=== PATIENT | female | born 1965 | race Caucasian/White ===

== ENCOUNTER 2017-10-19 11:31 | Inpatient (IN) | payer BC ==
[2017-10-19] MEDS ORDERED: CIPROFLOXACIN 400mg IV 400 MG/200 ML BAG IV ONE (12:11)
[2017-10-19] MEDS ORDERED: FENTANYL CITR 100 MCG/2 ML ONE ×2 (12:11→13:35)
[2017-10-19] MEDS ORDERED: FAMOTIDINE 20 MG/2 ML VIAL IV ONE (12:11)
[2017-10-19] MEDS ORDERED: NA CHLORIDE 0.9% 1,000 ML ONE ×2 (12:11→13:43)
[2017-10-19] MEDS ORDERED: METRONIDAZOLE 500mg IVPB 500 MG/100 ML BAG IV ONE (12:11)
[2017-10-19] MEDS ORDERED: ONDANSETRON 4 MG/2 ML VIAL ONE (12:11)
[2017-10-19 12:59] LABS: Absolute Lymphocytes (CBC) 1.5 K/uL (0.7-4.9); Absolute Monocytes 0.5 K/uL (0.1-1.3); Absolute Neutrophil 5.7 K/uL (1.8-8.0); Basophils % 0.8 % (0-1.3); Eosinophils % 1.1 % (0-4.4); Hematocrit 43.6 % (36.0-45.0); Lymphocytes % 18.6 % (15.3-44.8); MCH 27.8 pg (27.0-35.0); MCV 85.5 fL (80-100); MPV 7.7 fL (7.6-11.3); Monocytes % 6.8 % (3.3-12.3)
[2017-10-19 13:09] LABS: Protime INR 0.93
[2017-10-19 13:12] LABS: Potassium 3.6 mEq/L (3.6-5.0)
[2017-10-19 13:19] LABS: Albumin 3.5 g/dL (3.2-5.5); Bilirubin Direct 0.1 mg/dL (0-0.2); Bilirubin Total 0.7 mg/dL (0.3-1.2); Magnesium 1.8 mg/dL (1.8-2.5); Protein, Total 7.3 g/dL (6.0-8.3)
--- NOTE | 2017-10-19 13:38 | RAD REPORT ---
EXAM DESCRIPTION: RAD - Abdomen Acute Series - 10/19/2017 1:17 pm CLINICAL HISTORY: Flank pain, hematuria COMPARISON: 10/16/2017, 10/15/2017. FINDINGS: Frontal view the chest demonstrates a grossly clear lungs. No subdiaphragmatic free air se en. Cardiac size is normal. Renal shadows are largely obscured by stool content. No bowel obstruction is seen. IMPRESSION: No acute finding identified. Renal shadows are largely obscured by stool in the colon.
[2017-10-19 14:08] LABS: Urine Blood 3+ (NEG); Urine Glucose NEGATIVE (NEG); Urine Protein NEGATIVE (NEG); Urine Specific Gravity 1.025 (1.005-1.030); Urine pH 5.5 (5.0-7.0)
[2017-10-19 14:13] LABS: CKMB Creatine Kinase MB 1.8 ng/ml (0.3-4.0)
--- NOTE | 2017-10-19 15:24 | ER ---
Nurse's Notes [facility] Name: Karen King Age: 52 yrs Sex: Female : 1965 Arrival Date: 10/19/2017 Time: 11:32 Bed 17 Private MD: Diagnosis: Crohn's disease [regional enteritis];Abdominal tenderness;Hematuria;Hydronephrosis with ureteral stricture, not elsewhere classified-6 mm left lower pole calculi Presentation: 10/19 11:37 Presenting complaint: Patient states: I had a 7mm stone on left side on and I la1 am having worsening pain and urinating blood. Transition of care: patient was not received from another setting of care. Onset of symptoms was October 19, 2017. Initial Sepsis Screen: Does the patient meet any 2 criteria? No. Patient's initial sepsis screen is negative. Does the patient have a suspected source of infection? No. Patient's initial sepsis screen is negative. Care prior to arrival: None. 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 - Social history:: Smoking status: unknown. Screenin:40 Abuse screen: Denies threats or abuse. Nutritional screening: No deficits noted. rb1 Tuberculosis screening: No symptoms or risk factors identified. Fall Risk None identified. Assessment: 11:40 General: Appears uncomfortable, Behavior is crying, Denies fever. Pain: Complains of rb1 pain in left flank Pain currently is 10 out of 10 on a pain scale. Neuro: Level of Consciousness is awake, alert, obeys commands, Oriented to person, place, time, situation. Cardiovascular: Capillary refill < 3 seconds is brisk in bilateral fingers. Respiratory: Airway is patent Respiratory effort is even, unlabored, Respiratory pattern is regular, symmetrical. GI: Reports nausea, vomiting. : Reports bloody urine. Derm: Skin is pink, warm \T\ dry. 12:32 Reassessment: Patient appears in no apparent distress at this time. Patient and/or rb1 family updated on plan of care and expected duration. Pain level reassessed. Patient is alert, oriented x 3, equal unlabored respirations, skin warm/dry/pink. Notified provider that we are having difficulty inserting an IV line and that the Pt. may need a midline or EJ. 12:54 Reassessment: Called x-ray to inform them that the pt. has received pain medication and rb1 is ready for tests. 13:40 Reassessment: Patient appears in no apparent distress at this time. Patient and/or rb1 family updated on plan of care and expected duration. Pain level reassessed. Patient is alert, oriented x 3, equal unlabored respirations, skin warm/dry/pink. 14:30 Reassessment: Patient appears in no apparent distress at this time. No changes from rb1 previously documented assessment. 15:55 Reassessment: Patient and/or family updated on plan of care and expected duration. Pain rb1 level reassessed. Patient is alert, oriented x 3, equal unlabored respirations, skin warm/dry/pink. Notified provider of pain; received order for Fentanyl 50 mcg IVP once. 17:00 Reassessment: Patient appears in no apparent distress at this time. Patient and/or rb1 family updated on plan of care and expected duration. Pain level reassessed. Patient is alert, oriented x 3, equal unlabored respirations, skin warm/dry/pink. pain 7/10. 17:20 Reassessment: Called to give report to NETO Haney, was on hold for seven minutes. rb1 Spoke to NETO Haney/ NETO Teresa at 1728. Gave information from the SBAR. All questions asked and answered. Vital Signs: 11:38 BP 165 / 79; Pulse 94; Resp 19; Temp 98.8(TE); Pulse Ox 96% on R/A; Weight 89.81 kg; la1 Height 5 ft. 2 in. (157.48 cm); 12:30 BP 142 / 81; Pulse 79; Resp 18; Pulse Ox 99% on R/A; rb1 15:30 BP 117 / 101; Pulse 71; Resp 17; Pulse Ox 97% on R/A; rb1 16:30 BP 126 / 110; Pulse 70; Resp 18; Pulse Ox 97% on R/A; rb1 17:25 BP 127 / 83; Pulse 67; Resp 16; Pulse Ox 96% on R/A; rb1 11:38 Body Mass Index 36.21 (89.81 kg, 157.48 cm) la1 ED Course: 11:32 Patient arrived in ED. as 11:36 Gerard Gary, RN is Primary Nurse. la1 11:38 Triage completed. la1 11:38 Arm band placed on left wrist. la1 11:39 Nitish Vazquez MD is Attending Physician. tomy 11:40 Patient has correct armband on for positive identification. Bed in low position. Call rb1 light in reach. Side rails up X 1. explosive ordnance disposal manager on. Pulse ox on. NIBP on. 12:15 Missed attempt(s): 20 gauge in right antecubital area. Bleeding controlled, band aid dh3 applied, catheter tip intact. 12:20 Missed attempt(s): 22 gauge in left antecubital area. rb1 12:31 Urine collected: clean catch specimen, cloudy, gokul colored. jb1 12:52 EKG done, by ED staff, reviewed by Nitish Vazquez MD. jb1 13:15 Abdomen Acute Series XRAY In Process Unspecified. EDMS 15:23 Claudia Johnson MD is Hospitalizing Provider. tomy 15:58 Hospitalizing Provider role handed off by Claudia Johnson MD eb 15:58 Sam Sánchez MD is Hospitalizing Provider. eb 16:00 Note: CT delay due to pt needs pain meds. Rn will call when pt is ready for ct. cw1 16:20 CT completed. Patient moved to CT via wheelchair. Patient moved back from CT. cw1 17:56 No provider procedures requiring assistance completed. Patient admitted, IV remains in rb1 place. Administered Medications: 12:50 Drug: NS 0.9% 1000 ml Route: IV; Rate: 1 bolus; Site: left upper arm; rb1 13:50 Follow up: IV Status: Completed infusion rb1 12:50 Drug: fentaNYL (PF) 50 mcg Route: IVP; Site: left upper arm; rb1 13:10 Follow up: Response: No adverse reaction; Pain is unchanged, physician notified; no rb1 order received at this time 12:50 Drug: Zofran 4 mg Route: IVP; Site: left upper arm; rb1 13:10 Follow up: Response: No adverse reaction; Nausea is decreased rb1 12:50 Drug: Pepcid 20 mg Route: IVP; Site: left upper arm; rb1 13:10 Follow up: Response: No adverse reaction rb1 12:59 Drug: Flagyl 500 mg Volume: 100 ml; Route: IVPB; Rate: 200 ml/hr; Infused Over: 30 rb1 mins; Site: left upper arm; 13:40 Drug: fentaNYL (PF) 25 mcg Route: IVP; Site: left upper arm; rb1 14:00 Follow up: Response: No adverse reaction; Pain is decreased rb1 13:50 Drug: NS 0.9% 1000 ml Route: IV; Rate: 125 ml/hr; Site: left upper arm; rb1 14:02 Drug: Cipro 400 mg Volume: 200 ml; Route: IVPB; Infused Over: 60 mins; Site: left ph antecubital; 16:00 Drug: fentaNYL (PF) 50 mcg Route: IVP; Site: left upper arm; rb1 Intake: Outcome: 15:24 Decision to Hospitalize by Provider. tomy 17:56 Admitted to Tele accompanied by tech, family with patient, via stretcher, room 410, rb1 with chart, Report called to NETO Haney/NETO Teresa 17:56 Condition: stable 17:56 Instructed on the need for admit. 17:58 Patient left the ED. rb1 Signatures: Dispatcher [employer] EDCristian Moura jbNitish Terrazas MD MD cha Martinez, Amelia as Woodley, Crystal cw1 Gerard Gary RN RN la1 Shauna Kent RN RN Delmy Benitez, NETO RN rb1 Marely Brown 3 Katey Tesfaye
--- NOTE | 2017-10-19 15:25 | EDPHYS ---
Physician Documentation [facility] Name: Karen King Age: 52 yrs Sex: Female : 1965 Arrival Date: 10/19/2017 Time: 11:32 Bed 17 Private MD: ED Physician Nitish Vazquez HPI: 10/19 12:01 This 52 yrs old Female presents to ER via Wheelchair with complaints of Flank tomy Pain. 12:01 The patient complains of pain in the left low back, left mid back, right mid back and tomy right low back. 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 - Social history:: Smoking status: unknown. ROS: 12:01 Constitutional: Negative for fever, chills, and weight loss, Eyes: Negative for injury, tomy pain, redness, and discharge, ENT: Negative for injury, pain, and discharge, Neck: Negative for injury, pain, and swelling, Cardiovascular: Negative for chest pain, palpitations, and edema, Respiratory: Negative for shortness of breath, cough, wheezing, and pleuritic chest pain, Back: Negative for injury and pain, : Negative for injury, bleeding, discharge, and swelling, MS/Extremity: Negative for injury and deformity, Skin: Negative for injury, rash, and discoloration, Neuro: Negative for headache, weakness, numbness, tingling, and seizure, Psych: Negative for depression, anxiety, suicide ideation, homicidal ideation, and hallucinations, Allergy/Immunology: Negative for hives, rash, and allergies, Endocrine: Negative for neck swelling, polydipsia, polyuria, polyphagia, and marked weight changes, Hematologic/Lymphatic: Negative for swollen nodes, abnormal bleeding, and unusual bruising. 12:01 Abdomen/GI: Positive for abdominal pain, nausea and vomiting, nausea, vomiting, and diarrhea, nausea, vomiting, diarrhea, abdominal cramps. Exam: 12:01 Constitutional: This is a well developed, well nourished patient who is awake, alert, tomy and in no acute distress. Head/Face: Normocephalic, atraumatic. Eyes: Pupils equal round and reactive to light, extra-ocular motions intact. Lids and lashes normal. Conjunctiva and sclera are non-icteric and not injected. Cornea within normal limits. Periorbital areas with no swelling, redness, or edema. ENT: Nares patent. No nasal discharge, no septal abnormalities noted. Tympanic membranes are normal and external auditory canals are clear. Oropharynx with no redness, swelling, or masses, exudates, or evidence of obstruction, uvula midline. Mucous membranes moist. Neck: Trachea midline, no thyromegaly or masses palpated, and no cervical lymphadenopathy. Supple, full range of motion without nuchal rigidity, or vertebral point tenderness. No Meningismus. Chest/axilla: Normal chest wall appearance and motion. Nontender with no deformity. No lesions are appreciated. Cardiovascular: Regular rate and rhythm with a normal S1 and S2. No gallops, murmurs, or rubs. Normal PMI, no JVD. No pulse deficits. Respiratory: Lungs have equal breath sounds bilaterally, clear to auscultation and percussion. No rales, rhonchi or wheezes noted. No increased work of breathing, no retractions or nasal flaring. Abdomen/GI: Soft, non-tender, with normal bowel sounds. No distension or tympany. No guarding or rebound. No evidence of tenderness throughout. 12:01 Back: Exam negative for Vital Signs: 11:38 BP 165 / 79; Pulse 94; Resp 19; Temp 98.8(TE); Pulse Ox 96% on R/A; Weight 89.81 kg; la1 Height 5 ft. 2 in. (157.48 cm); 12:30 BP 142 / 81; Pulse 79; Resp 18; Pulse Ox 99% on R/A; rb1 15:30 BP 117 / 101; Pulse 71; Resp 17; Pulse Ox 97% on R/A; rb1 16:30 BP 126 / 110; Pulse 70; Resp 18; Pulse Ox 97% on R/A; rb1 17:25 BP 127 / 83; Pulse 67; Resp 16; Pulse Ox 96% on R/A; rb1 11:38 Body Mass Index 36.21 (89.81 kg, 157.48 cm) la1 MDM: 11:[address] [facility] 12:03 Data reviewed: vital signs, nurses notes, EMS record. [facility] 10/19 12:00 Order name: Basic Metabolic Panel [facility] 10/19 12:00 Order name: BNP; Complete Time: 14:00 [facility] 10/19 12:00 Order name: CBC with Diff; Complete Time: 14:00 [facility] 10/19 12:00 Order name: Ckmb [facility] 10/19 12:00 Order name: CPK [facility] 10/19 12:00 Order name: LFT's; Complete Time: 14:57 [facility] 10/19 12:00 Order name: Magnesium; Complete Time: 14:57 [facility] 10/19 12:00 Order name: PT-INR; Complete Time: 14:00 [facility] 10/19 12:00 Order name: Ptt, Activated; Complete Time: 14:00 [facility] 10/19 12:00 Order name: Troponin (emerg Dept Use Only); Complete Time: 14:00 [facility] 10/19 12:00 Order name: Lipase; Complete Time: 14:57 [facility] 10/19 12:01 Order name: Basic Metabolic Panel; Complete Time: 14:57 [facility] 10/19 12:01 Order name: CKMB Creatine Kinase MB; Complete Time: 14:57 [facility] 10/19 12:01 Order name: Creatine Phosphokinase; Complete Time: 14:57 [facility] 10/19 12:00 Order name: EKG; Complete Time: 12:01 [facility] 10/19 12:00 Order name: Abdomen Acute Series XRAY; Complete Time: 14:00 [facility] 10/19 12:36 Order name: Urine Dipstick--Ancillary (enter results); Complete Time: 14:57 10/19 12:36 Order name: Urine --Ancillary (enter results); Complete Time: 14:57 10/19 15:27 Order name: CONS Physician Consult [facility] 10/19 15:47 Order name: CT Stone Protocol [facility] 10/19 16:44 Order name: CT [facility] 10/19 12:00 Order name: Cardiac monitoring; Complete Time: 12:31 [facility] 10/19 12:00 Order name: EKG - Nurse/Tech; Complete Time: 12: [facility] 10/19 12:00 Order name: IV Saline Lock; Complete Time: 12: [facility] 10/19 12:00 Order name: Labs collected and sent; Complete Time: 12:53 [facility] 10/19 12:00 Order name: O2 Per Protocol; Complete Time: 12: [facility] 10/19 12:00 Order name: O2 Sat Monitoring; Complete Time: : [facility] 10/19 12:00 Order name: Urine Dipstick-Ancillary (obtain specimen); Complete Time: 12: [facility] Administered Medications: 12:50 Drug: NS 0.9% 1000 ml Route: IV; Rate: 1 bolus; Site: left upper arm; rb1 13:50 Follow up: IV Status: Completed infusion rb1 12:50 Drug: fentaNYL (PF) 50 mcg Route: IVP; Site: left upper arm; rb1 13:10 Follow up: Response: No adverse reaction; Pain is unchanged, physician notified; no rb1 order received at this time 12:50 Drug: Zofran 4 mg Route: IVP; Site: left upper arm; rb1 13:10 Follow up: Response: No adverse reaction; Nausea is decreased rb1 12:50 Drug: Pepcid 20 mg Route: IVP; Site: left upper arm; rb1 13:10 Follow up: Response: No adverse reaction rb1 12:59 Drug: Flagyl 500 mg Volume: 100 ml; Route: IVPB; Rate: 200 ml/hr; Infused Over: 30 rb1 mins; Site: left upper arm; 13:40 Drug: fentaNYL (PF) 25 mcg Route: IVP; Site: left upper arm; rb1 14:00 Follow up: Response: No adverse reaction; Pain is decreased rb1 13:50 Drug: NS 0.9% 1000 ml Route: IV; Rate: 125 ml/hr; Site: left upper arm; rb1 14:02 Drug: Cipro 400 mg Volume: 200 ml; Route: IVPB; Infused Over: 60 mins; Site: left ph antecubital; 16:00 Drug: fentaNYL (PF) 50 mcg Route: IVP; Site: left upper arm; rb1 Disposition: 10/19/17 15:24 Hospitalization ordered by Sam Sánchez for Inpatient Admission. Preliminary diagnosis are Crohn's disease [regional enteritis], Abdominal tenderness, Hematuria, Hydronephrosis with ureteral stricture, not elsewhere classified - 6 mm left lower pole calculi. - Bed requested for Telemetry/MedSurg (Inpatient). - Status is Inpatient Admission. rb1 - Condition is Fair. - Problem is new. - Symptoms have improved. UTI on Admission? No Signatures: Dispatcher [employer] EDMS Nitish Vazquez MD MD cha Attema, Lee RN RN la1 Shauna Kent RN RN Delmy Benitez RN RN rb1 Katey Tesfaye
[2017-10-19] MEDS ORDERED: ACETAMINOPHEN 500 MG TAB PO PRN (15:54)
[2017-10-19] MEDS ORDERED: FENTANYL CITR 100 MCG/2 ML IV PRN (15:57)
[2017-10-19] MEDS: NA CHLORIDE 0.9% 1,000 ML IV SCH ×2 (16:00→23:39)
--- NOTE | 2017-10-19 16:43 | RAD REPORT ---
EXAM DESCRIPTION: CT - Stone Protocol - 10/19/2017 4:21 pm CLINICAL HISTORY: Flank pain. Hematuria COMPARISON: 10/15/2017 TECHNIQUE: Axial images were obtained without oral or IV contrast. Lack of contrast limits solid org an and vascular assessment. The [id number] spans the entirety of the system partially obscuring uppermost abdomen and lung bases. Coronal reformatted images were obtained and reviewed. All CT scans are performed using dose optimization technique as appropriate and may include automated exposure control or mA/KV adjustment according to patient size. FINDINGS: The lower lung jenkins are clear. Imaged portions of the liver and spleen show no suspicious findings on non-contrast imaging. The panc reas and adrenal glands are normal. No pathologic lymphadenopathy in the abdomen or pelvis. The previously noted calculus in the inferior left kidney appears to have migrated into the left abe l pelvis, measuring 5 mm (640 HU). Mild left hydronephrosis is present. Additional punctate bilateral nephrolithiasis on the left seen. A tiny punctate stone is also suspected at the right UPJ measuring 1 mm with mild to moderate right h ydronephrosis, fractionally progressive since the comparative study. No bowel obstruction, free air, free fluid or abscess. Normal appendix noted.Mucosal and mural thicke sebas of the ileum and dilatation of the right lower quadrant ileal loop noted to 4 cm, favoring ileit is. This finding appears mildly progressive since the comparative study. No significant bony abnormality. IMPRESSION: Previously noted inferior left renal calculus has migrated to the left renal pelvis. Mil d left hydronephrosis is noted. Punctate 1 mm calculus suspected right UPJ with mild to moderate right hydronephrosis. Mild progression in ileitis since comparative exam.
[2017-10-19] MEDS ORDERED: METHYLPREDNISOLONE 40 MG INJ IV ONE (18:20)
[2017-10-19] MEDS: METRONIDAZOLE 500mg IVPB 500 MG/100 ML BAG IV SCH ×2 (18:32→23:38)
[2017-10-19] MEDS: HYDROMORPHONE HCL 2 MG/ML inj IV PRN ×2 (18:32→22:39)
[2017-10-19] MEDS: ONDANSETRON 4 MG/2 ML VIAL IV PRN ×2 (18:32→23:38)
[2017-10-19 18:45] VITALS: BMI 36.8
[2017-10-19] MEDS: CIPROFLOXACIN 400mg IV 400 MG/200 ML BAG IV SCH (22:37)
[2017-10-19] MEDS: FAMOTIDINE 20 MG/2 ML VIAL IV SCH (22:38)
[2017-10-20] MEDS: HYDROMORPHONE HCL 2 MG/ML inj IV PRN ×5 (02:48→22:01)
[2017-10-20 05:08] LABS: Potassium 4.4 mEq/L (3.6-5.0)
[2017-10-20] MEDS: METRONIDAZOLE 500mg IVPB 500 MG/100 ML BAG IV SCH ×3 (05:22→17:01)
--- NOTE | 2017-10-20 07:05 | EKG ---
Test Date: 2017-10-19 Test Time: 12:45:51 Pattern Lease Inspector: HERB MEASUREMENT RESULTS: Intervals: Rate: 79 MA: 130 QRSD: 82 QT: 386 QTc: 442 [place]: P: 76 MA: 130 QRS: 67 T: 57 INTERPRETIVE STATEMENTS: Normal sinus rhythm Normal ECG Compared to ECG 04/21/2017 18:51:04 Sinus tachycardia no longer present Ventricular premature complex(es) no longer present Electronically Signed On 10-20-17 07:04:48 CDT by Alexander Grant
[2017-10-20] MEDS: NA CHLORIDE 0.9% 1,000 ML IV SCH ×2 (08:00→16:31)
[2017-10-20] MEDS: CIPROFLOXACIN 400mg IV 400 MG/200 ML BAG IV SCH ×2 (08:58→21:33)
[2017-10-20] MEDS: FAMOTIDINE 20 MG/2 ML VIAL IV SCH ×2 (08:58→21:33)
[2017-10-20] MEDS: PROMETHAZINE 25 MG/ML VIAL IV PRN ×2 (09:01→19:38)
[2017-10-20] MEDS ORDERED: HYDROMORPHONE HCL 2 MG/ML inj IV ONE (14:42)
[2017-10-21] MEDS: NA CHLORIDE 0.9% 1,000 ML IV SCH ×3 (01:29→16:00)
[2017-10-21] MEDS: METRONIDAZOLE 500mg IVPB 500 MG/100 ML BAG IV SCH ×4 (01:29→17:22)
[2017-10-21] MEDS: HYDROMORPHONE HCL 2 MG/ML inj IV PRN ×3 (02:58→12:03)
--- NOTE | 2017-10-21 04:16 | HP ---
Date of Admission: 10/19/2017 Chief Complaint: Right flank pain. History Of Present Illness: A 52-year-old female, who is known to have multiple kidney stones, who i s under urologist for workup of recurrent stones, was brought to the emergency room because of right flank pain radiating to right groin and right thigh. The patient had evaluation done. The patient h ad normal white count. CT scan showed evidence of right proximal ureter stone. The patient is admit mckinley. Past Medical History: Positive for Crohn's disease, on treatment; recurrent kidney stones, history o f anxiety and depression, history of allergies and asthma. Family History: Noncontributory. Personal History: Nonsmoker. Home Medicines: Please refer to the chart. Allergies: INCLUDE BUTALBITAL, MORPHINE, NONSTEROIDALS. PLEASE REFER TO THE CHART. Review of Systems: The patient denied any chest pain or shortness of breath. Physical Examination: General: Revealed 52-year-old female, in moderate pain. Vital Signs: Afebrile. HEENT: Negative. Neck: Supple. JVD negative. Chest: Clear. Heart: Regular. Abdomen: Soft and nontender. Extremities: No edema. Laboratory Data: White count normal. CT scan, evidence of right proximal ureteral stone with obstru ction. Assessment: 1.Symptomatic right ureteral stone. 2.Crohn's disease. 3.History of asthma and allergies. 4.Multiple allergies. Plan: IV fluids. Urology consultation. CAROLINA/TONYA Voice ID: [id number]
--- NOTE | 2017-10-21 07:32 | RAD REPORT ---
EXAM DESCRIPTION: RAD - Abdomen 1 View (KUB) - 10/21/2017 7:08 am CLINICAL HISTORY: Renal calculi COMPARISON: CT study October 19, KUB October 16 FINDINGS: The left UPJ region calculus seen on the prior CT study is not clearly seen on this examin ation. It is uncertain if the patient underwent intervening lithotripsy. Overlying bowel content is l imiting. No stone or stone fragment seen along the expected course of the left ureter. Pelvic floor p hleboliths are again noted. No obstruction, free air or pneumatosis. Bowel gas pattern is nonspecific. No significant bony findings IMPRESSION: The left UPJ region calcifications seen on the earlier CT study is not clearly evident o n this study. Overlying bowel content is limiting. No stone or stone fragment along the expected course of the ureter. No bladder calculus suspected. The stone may have fragmented and passed. The stone or stone fragments may now be occult on plain sb ging due to small size, composition or overlying bowel blocking visualization. If the patient has continued symptoms or there is need for more definitive stone or fragment assessme nt, repeat CT stone protocol could be performed.
--- NOTE | 2017-10-21 08:43 | CON ---
History Of Present Illness: A 52-year-old female brought to the emergency room for flex lower back flank pain and right back flank pain. She had a CT scan showing a 1 mm stone in the right UPJ and a 6 mm stone in the left UPJ. The dilated renal pelvis was present on previous scan show so that may be possible extrarenal pelvises. She has a history of Crohn's, she has seen Dr. Garvin for kidney stones and stent placement. She said last time Dr. Garvin left the stent on the left side for 4 months due to insurance issues. She had 7-8 stones in the past and has been to [place] and other places like that. Allergies: _hydromorphone_, MORPHINE, NSAIDS, ROCEPHIN, TRAMADOL, ZYRTEC. Home Medications: Synthroid. Past Medical History: Asthma, Hypothyroid, Crohn's, kidney stone. Past Surgical History: Hysterectomy, back hip surgery, previous kidney stone surgeries. Review of Systems: Constitutional: Negative for fever, chills. Eyes: Negative for injury. ENT: Negative for injury, pain or discharge. Neck: Negative for swelling. Cardiovascular: Negative for chest pain or palpitation. Respiratory: Negative for shortness of breath or cough. Back: Positive for back pain as mentioned above. : As mentioned above. Positive for kidney stones. Musculoskeletal: Negative for injury or deformity. Skin: Positive for multiple tattoos all over. Psych: Negative for depression or anxiety or suicide. Allergies: Negative for rashes or hives. Endocrine: Negative for neck swelling. Physical Examination: Vital Signs: Temperature 97.2, pulse 67, respirations 16, BP 133/93, sats 93%. HEENT: Atraumatic, normocephalic. Musculoskeletal: Positive bilateral flank tenderness. Abdomen: Soft, nontender. Extremities: Normal range of motion. Laboratory Data: White count normal at 7.9, H and H 14 and 43, platelet count 371, _ negative. Chemistry: Sodium 138, potassium 4.4, chloride 107, carbon dioxide 29, BUN 11, creatinine 0.8, GFR , glucose 157, calcium _. Urine positive and pH 5.5 secondary to___, nitrite negative, LE negative. Assessment: 1 mm stone at the right ureteropelvic junction. She also has a 5 mm stone at the left ureteropelvic junction, HU 640. Difficult to say if it is uric acid or not. We will do a KUB in the morning and see what she has. She is planned to have cystoscopy, right retrograde pyelogram, stent placement and left ESWL, possible left retrograde. I gave her general information on alternatives and risks and she wishes to proceed. ANTONETTE/TONYA Voice ID: [id number] Report ID: [id number] ANA
[2017-10-21] MEDS: FAMOTIDINE 20 MG/2 ML VIAL IV SCH (08:57)
[2017-10-21] MEDS: CIPROFLOXACIN 400mg IV 400 MG/200 ML BAG IV SCH (08:57)
[2017-10-21] MEDS ORDERED: FENTANYL CITR 100 MCG/2 ML ONE (13:07)
[2017-10-21] MEDS ORDERED: PROPOFOL 200 MG/20 ML VIAL IV ONE (13:07)
[2017-10-21] MEDS ORDERED: MIDAZOLAM HCL 2 MG/2 ML INJ ONE (13:07)
[2017-10-21] MEDS ORDERED: LIDOCAINE 2% MPF 5 ML VIAL ONE (13:07)
[2017-10-21 15:31] VITALS: O2SAT 95
[2017-10-21] MEDS ORDERED: D5W 1,000 ML with NA BICARB 8.4% 100 MEQ IV SCH ×2 (17:00)
[2017-10-21] MEDS ORDERED: NA CHLORIDE 0.9% 1,000 ML IV SCH (17:00)
[2017-10-21] MEDS: PROMETHAZINE 25 MG/ML VIAL IV PRN (18:06)
[2017-10-21] MEDS: CIPROFLOXACIN HCL 250 MG TAB PO SCH (20:21)
--- NOTE | 2017-10-22 01:14 | PN ---
The patient underwent lithotripsy and retrograde study and stent insertion today for her bilateral ki dney stones. The patient postoperatively is stable. CAROLINA/TONYA Voice ID: [id number] Report ID: [id number]
[2017-10-22] MEDS: HYDROMORPHONE HCL 2 MG/ML inj IV PRN ×4 (04:10→16:14)
[2017-10-22] MEDS: CIPROFLOXACIN HCL 250 MG TAB PO SCH (08:18)
[2017-10-22 16:33] VITALS: BP 154/91; TEMP 97.8
--- NOTE | 2017-10-22 20:40 | PN ---
This patient is feeling well, states she is doing well. The nurses stated she has been asking for pa in medication every 4 hours, but she told me that she is in no pain. She is fine. I told her that I will discharge her. She said that is fine. She asks if she should get some more Dilaudid just befo re discharge, so that is kind of strange request. She did at the left ESWL and she had a stent place d on the right. We can remove her stent next week in the office. She will go home on Tylenol and Fl omax. PB/MODL Voice ID: [id number] Report ID: [id number]
--- NOTE | 2017-10-26 16:21 | DS ---
Date of Discharge: 10/22/2017 Final Diagnoses: 1.Bilateral kidney stones. 2.Crohn disease. 3.Asthma. Plan: This patient was admitted through emergency room because of right flank pain going to the abdo men and groin. She also had a history of multiple admissions for reactivation of Crohn disease. CAT scan showed evidence of hydronephrosis as well as ureteral stone. After initial observation, it was felt that because of symptoms, she needed intervention. Dr. Zavaleta's saw the patient and put bilater al stents and after observation, she was discharged home with advice to follow up with Dr. Zavaleta in t office for kidney stone problems. She was given antibiotics in the IV while she was in the hospit al. The patient received multiple doses of Dilaudid for her pain control. CAROLINA/TONYA Voice ID: [id number] Report ID: [id number]
== END 2017-10-22 18:22 | disposition home or self-care (01) | DRG 694 ==
LOC: ER 11:31 → ERHOLD 15:25 → 4TH 17:41
PROVIDERS: ADMIT Internal Medicine; ATTEND Internal Medicine
PROC: 0T768DZ Dilation of Right Ureter with Intraluminal Device, Via Natural or Artificial Opening Endoscopic (ICD-10-PCS; principal; 2017-10-19)
PROC: 0TF78ZZ Fragmentation in Left Ureter, Via Natural or Artificial Opening Endoscopic (ICD-10-PCS; 2017-10-19)
PROC: BT1BZZZ Fluoroscopy of Bladder and Urethra (ICD-10-PCS; 2017-10-19)
DX: N13.2 Hydronephrosis with renal and ureteral calculous obstruction (principal); K50.90 Crohn's disease, unspecified, without complications; J45.909 Unspecified asthma, uncomplicated; Z87.442 Personal history of urinary calculi
CPT/HCPCS: 36415; 50590; 74018; 74022; 74176; 76377; 80048; 80076; 81003; 81025; 82550; 82553; 83690; 83735; 83880; 84484; 85025; 85610; 85730; 93005; 99285; J0744; J1170; J2250; J2405; J2550; J2920; J3010; J7030; Q9967